=== PATIENT | female | born 1995 | race African-American/Black ===

== ENCOUNTER 2017-05-16 07:59 | Emergency (ER) | payer MEDICAID, OTHER ==
[~2017-05-16] VITALS: Ht 165.1 cm; Wt 55.0 kg
[~2017-05-16 07:59] MED LIST: UNKNOWN MEDICATION
[2017-05-16 09:20] LABS: BASOPHILS % 0.5 % (0.0-2.0); EOSINOPHILS % 0.1 % (0.0-5.0); HEMATOCRIT. 39.4 % (36.0-48.0); HEMOGLOBIN. 12.9 g/dL (12.0-16.0); LYMPHOCYTES % 21.2 % (20.0-50.0); MEAN CORPUSCULAR HEMOGLOBIN 28.6 pg (28.0-32.0); MEAN CORPUSCULAR VOLUME 87.1 fL (81.0-99.0); MEAN PLATELET VOLUME 7.8 fl (7.4-10.4); MONOCYTES % 8.8 % (2.0-8.0); NEUTROPHILS % 69.4 % (40.0-76.0); PLATELET 347 x1000/uL (130-400); RED BLOOD CELL COUNT 4.52 mill/uL (4.2-5.4); RED CELL DISTRIBUTION WIDTH 13.1 % (11.6-14.6)
[2017-05-16 09:26] LABS: CHLORIDE 104 mEq/L (98-107)
[2017-05-16 09:31] LABS: CARBON DIOXIDE 26 mEq/L (21-32)
[2017-05-16 09:50] LABS: CLARITY URINE CLEAR (CLEAR); COLOR URINE YELLOW (YELLOW); GLUCOSE URINE NEGATIVE (NEGATIVE); KETONES URINE 3+ (NEGATIVE); LEUKOCYTE ESTERASE URINE NEGATIVE (NEGATIVE); NITRITE URINE NEGATIVE (NEGATIVE); OCCULT BLOOD URINE NEGATIVE (NEGATIVE); PROTEIN URINE TRACE (NEGATIVE); SPECIFIC GRAVITY URINE 1.026 (1.005-1.030)
[2017-05-16] MEDS ORDERED: ONDANSETRON 4MG ODT PO ONE (10:15)
[2017-05-16] MEDS ORDERED: DIPHENHYDRAMINE 25MG CAPSULE PO ONE (11:45)
[2017-05-16 12:18] VITALS: BP 126/68
== END 2017-05-16 12:21 | disposition home or self-care (01) ==
LOC: ER 09:21
DX: G24.02 Drug induced acute dystonia (principal); F20.9 Schizophrenia, unspecified; T43.595A Adverse effect of other antipsychotics and neuroleptics, initial encounter; Y92.018 Other place in single-family (private) house as the place of occurrence of the external cause
CPT/HCPCS: 36415; 73130; 80048; 81001; 81025; 85025; 99285; Q0162; Q0163